=== PATIENT | male | born 1945 | race Caucasian/White ===

== ENCOUNTER → 2017-07-22 | Outpatient (CLI) | payer BC, MEDICARE | END | disposition home or self-care (01) | LOC: CFH 08:27 | PROVIDERS: ATTEND Internal Medicine Cardiovascular Disease | DX: I25.10 Atherosclerotic heart disease of native coronary artery without angina pectoris (principal); I25.2 Old myocardial infarction; Z95.1 Presence of aortocoronary bypass graft | CPT/HCPCS: 78452; 93017; A9502 ==

== ENCOUNTER 2018-04-18 11:29 | Inpatient (IN) | payer MEDICARE ==
[~2018-04-18] VITALS: Ht 185.4 cm; Wt 112.3 kg
[2018-04-18] MEDS ORDERED: ALLO300T PO (11:50)
[2018-04-18] MEDS ORDERED: ROSU5TAB PO (11:50)
[2018-04-18] MEDS ORDERED: PANT40TA5 PO (11:50)
[2018-04-18] MEDS ORDERED: ASPI-515 PO (11:50)
[2018-04-18 12:00] LABS: BASOPHILS # (AUTO) 0.15 x10^3/uL (0-0.1); BASOPHILS % (AUTO) 1 % (0-1); EOSINOPHILS # (AUTO) 0.02 x10^3/uL (0-0.4); EOSINOPHILS % (AUTO) 0 % (1-7); LYMPHOCYTES % (AUTO) 3 % (22-44); MD NO; MEAN CORPUSCULAR HEMOGLOBIN 29.2 pg (27.5-34.5); MEAN CORPUSCULAR HGB CONC 33.3 g/dL (33.2-36.2); MEAN CORPUSCULAR VOLUME 87.7 fL (81-97); MEAN PLATELET VOLUME 8.2 fL (7.4-10.4); MONOCYTES # (AUTO) 0.74 x10^3/uL (0.2-0.8); MONOCYTES % (AUTO) 5 % (2-9); NEUTROPHILS # (AUTO) 14.32 x10^3/uL (1.8-6.8); NEUTROPHILS % (AUTO) 92 % (42-75); PLATELET COUNT 178 x10^3/uL (130-400); RED BLOOD COUNT 5.77 x10^6/uL (4.38-5.82); RED CELL DISTRIBUTION WIDTH 13.5 % (9.4-14.8)
[2018-04-18 12:08] LABS: INTERNATIONAL NORMALIZED RATIO 0.99 (0.93-1.1); PROTHROMBIN TIME 10.2 Seconds (9.6-11.5)
[2018-04-18 12:14] LABS: ALANINE AMINOTRANSFERASE 35 U/L (12-78); ALBUMIN 4.2 g/dL (3.4-5.0); ANION GAP 6 mmol/L (5-15); CALCIUM 9.2 mg/dL (8.5-10.1); CHLORIDE 102 mmol/L (98-107); CREATININE 1.14 mg/dL (0.7-1.3)
[2018-04-18 12:16] LABS: TROPONIN I < 0.015 ng/mL (0.000-0.045)
[2018-04-18 12:18] LABS: ALKALINE PHOSPHATASE 79 U/L (45-117); BILIRUBIN,TOTAL 1.1 mg/dL (0.2-1.0); TOTAL PROTEIN 8.2 g/dL (6.4-8.2)
[2018-04-18] MEDS ORDERED: ASPIRIN 81 MG TABLET CHEW ONE (12:33)
[2018-04-18 12:36] LABS: MICROSCOPIC NOT IND
[2018-04-18] MEDS ORDERED: PLEASE ENTER ALLERGIES MC SCH (13:00)
[2018-04-18] MEDS ORDERED: HEPARIN 25,000 UNITS/500ML PMX 500 ML IV PRN ×2 (13:00→14:00)
[2018-04-18] MEDS ORDERED: HEPARIN 5,000 UNITS/ML, 1ML IV PRN ×2 (13:00→14:00)
[2018-04-18] MEDS ORDERED: HEPARIN 5,000 UNITS/ML, 1ML IV ONE ×2 (13:00→14:00)
[2018-04-18] MEDS ORDERED: ASPIRIN 81 MG TABLET CHEW PO ONE (13:00)
[2018-04-18 13:06] LABS: CULTURE INDICATED? NO
[2018-04-18] MEDS ORDERED: HEPARIN 5,000 UNITS/ML, 1ML ONE (13:25)
[2018-04-18] MEDS ORDERED: HEPARIN 25,000 UNITS/500ML PMX 500 ML ONE (13:26)
[2018-04-18] MEDS ORDERED: morphine SULFATE 10 MG/ML, 1ML IV PRN (14:00)
[2018-04-18] MEDS ORDERED: ZOLPIDEM 5MG TABLET PO PRN (14:00)
[2018-04-18] MEDS ORDERED: ONDANSETRON 2MG/ML, 2ML IVP PRN (14:00)
[2018-04-18] MEDS ORDERED: NITROGLYCERIN 0.4 MG/SPRAY SL PRN (14:00)
[2018-04-18] MEDS ORDERED: BISACODYL 10 MG SUPP PR PRN (14:00)
[2018-04-18] MEDS ORDERED: NITROGLYCERIN 0.4 MG BOTTLE (25 TABS) SL PRN (14:00)
[2018-04-18] MEDS: PANTOPROZOLE 40MG TABLET PO SCH (17:49)
[2018-04-18 18:18] LABS: TROPONIN I < 0.015 ng/mL (0.000-0.045)
[2018-04-18 19:23] VITALS: BP 130/79
[2018-04-18] MEDS ORDERED: PANTOPRAZOLE 20MG TABLET PO ONE (21:00)
[2018-04-18] MEDS: SODIUM CHLORIDE FLUSH 10ML SYR IVF SCH (21:01)
[2018-04-18] MEDS: ATORVASTATIN 10 MG TABLET PO SCH (21:02)
[2018-04-18] MEDS: ATORVASTATIN 80 MG TABLET PO SCH (21:02)
[2018-04-18] MEDS: MAALOX/HYOSCYAMINE/LIDOCAINE 45 ML BTL PO PRN (21:12)
[2018-04-19 00:21] LABS: TROPONIN I < 0.015 ng/mL (0.000-0.045)
[2018-04-19 00:55] VITALS: BP 111/70
[2018-04-19] MEDS: MAALOX/HYOSCYAMINE/LIDOCAINE 45 ML BTL PO PRN (04:29)
[2018-04-19 05:15] LABS: MEAN CORPUSCULAR HEMOGLOBIN 29.8 pg (27.5-34.5); MEAN CORPUSCULAR HGB CONC 33.7 g/dL (33.2-36.2); MEAN CORPUSCULAR VOLUME 88.2 fL (81-97); MEAN PLATELET VOLUME 8.9 fL (7.4-10.4); PLATELET COUNT 161 x10^3/uL (130-400); RED BLOOD COUNT 5.65 x10^6/uL (4.38-5.82); RED CELL DISTRIBUTION WIDTH 13.5 % (9.4-14.8)
[2018-04-19 05:35] LABS: ALANINE AMINOTRANSFERASE 49 U/L (12-78); ALBUMIN 3.7 g/dL (3.4-5.0); ALKALINE PHOSPHATASE 76 U/L (45-117); BILIRUBIN,TOTAL 2.7 mg/dL (0.2-1.0); CALCIUM 8.8 mg/dL (8.5-10.1); CREATININE 1.18 mg/dL (0.7-1.3); TOTAL PROTEIN 7.9 g/dL (6.4-8.2)
[2018-04-19 05:39] LABS: ANION GAP 6 mmol/L (5-15); CHLORIDE 100 mmol/L (98-107)
[2018-04-19] MEDS ORDERED: ASPIRIN 325 MG TABLET EC PO SCH (06:00)
[2018-04-19 07:10] VITALS: BP 113/74
[2018-04-19] MEDS ORDERED: ALLOPURINOL 300 MG TABLET PO SCH (09:00)
[2018-04-19] MEDS: PANTOPROZOLE 40MG TABLET PO SCH ×2 (09:13→17:22)
[2018-04-19] MEDS: METOPROLOL TARTRATE 25 MG TABLET PO SCH ×2 (10:18→18:06)
[2018-04-19] MEDS: ALLOPURINOL 300 MG TABLET PO SCH (10:18)
[2018-04-19] MEDS: ASPIRIN 81 MG TABLET EC PO SCH (10:18)
[2018-04-19 11:04] LABS: CHOL/HDL RATIO 1.8; LDL/HDL RATIO 0.4 (0.5-3.0)
[2018-04-19] MEDS: SODIUM CHLORIDE FLUSH 10ML SYR IVF SCH ×2 (12:28→21:49)
[2018-04-19 12:29] VITALS: BP 121/81
[2018-04-19] MEDS: SUCRALFATE 1 GM/10 ML UDC PO SCH ×2 (16:15→21:48)
[2018-04-19] MEDS: ACETAMINOPHEN 325 MG TABLET PO PRN (18:06)
[2018-04-19 19:07] VITALS: BP 99/56
[2018-04-19] MEDS: ATORVASTATIN 80 MG TABLET PO SCH (21:49)
[2018-04-19] MEDS: ATORVASTATIN 10 MG TABLET PO SCH (21:49)
[2018-04-20 02:11] VITALS: BP 107/71
[2018-04-20 05:35] LABS: BASOPHILS # (AUTO) 0.04 x10^3/uL (0-0.1); BASOPHILS % (AUTO) 0 % (0-1); EOSINOPHILS # (AUTO) 0.03 x10^3/uL (0-0.4); EOSINOPHILS % (AUTO) 0 % (1-7); LYMPHOCYTES # (AUTO) 0.82 x10^3/uL (1-3.4); LYMPHOCYTES % (AUTO) 7 % (22-44); MD NO; MEAN CORPUSCULAR HEMOGLOBIN 30.1 pg (27.5-34.5); MEAN CORPUSCULAR HGB CONC 34.1 g/dL (33.2-36.2); MEAN CORPUSCULAR VOLUME 88.4 fL (81-97); MEAN PLATELET VOLUME 8.7 fL (7.4-10.4); MONOCYTES # (AUTO) 0.79 x10^3/uL (0.2-0.8); MONOCYTES % (AUTO) 7 % (2-9); NEUTROPHILS # (AUTO) 9.52 x10^3/uL (1.8-6.8); NEUTROPHILS % (AUTO) 85 % (42-75); PLATELET COUNT 148 x10^3/uL (130-400); RED BLOOD COUNT 5.12 x10^6/uL (4.38-5.82); RED CELL DISTRIBUTION WIDTH 13.8 % (9.4-14.8)
[2018-04-20 05:42] LABS: ALANINE AMINOTRANSFERASE 88 U/L (12-78); ALBUMIN 3.1 g/dL (3.4-5.0); ANION GAP 6 mmol/L (5-15); CALCIUM 8.8 mg/dL (8.5-10.1); CHLORIDE 101 mmol/L (98-107); CREATININE 0.99 mg/dL (0.7-1.3)
[2018-04-20 05:44] LABS: ALKALINE PHOSPHATASE 93 U/L (45-117); BILIRUBIN,TOTAL 2.2 mg/dL (0.2-1.0); TOTAL PROTEIN 7.1 g/dL (6.4-8.2)
[2018-04-20 06:03] VITALS: BP 114/67
[2018-04-20] MEDS: ASPIRIN 81 MG TABLET EC PO SCH (06:04)
[2018-04-20] MEDS: METOPROLOL TARTRATE 25 MG TABLET PO SCH ×2 (06:05→17:06)
[2018-04-20] MEDS: SUCRALFATE 1 GM/10 ML UDC PO SCH ×4 (07:17→20:00)
[2018-04-20] MEDS: SODIUM CHLORIDE FLUSH 10ML SYR IVF SCH ×2 (11:00→20:00)
[2018-04-20 12:05] VITALS: BP 121/82
[2018-04-20] MEDS: PANTOPROZOLE 40MG TABLET PO SCH ×2 (12:21→17:07)
[2018-04-20] MEDS: ALLOPURINOL 300 MG TABLET PO SCH (17:07)
[2018-04-20 17:38] VITALS: BP 107/57
[2018-04-20 18:42] VITALS: BP 115/76
[2018-04-20] MEDS: ATORVASTATIN 80 MG TABLET PO SCH (20:00)
[2018-04-20] MEDS: ATORVASTATIN 10 MG TABLET PO SCH (20:00)
[2018-04-21 03:53] VITALS: BP 146/82
[2018-04-21 05:30] VITALS: BP 116/69
[2018-04-21 05:48] LABS: BASOPHILS # (AUTO) 0.03 x10^3/uL (0-0.1); BASOPHILS % (AUTO) 0 % (0-1); EOSINOPHILS # (AUTO) 0.07 x10^3/uL (0-0.4); EOSINOPHILS % (AUTO) 1 % (1-7); LYMPHOCYTES # (AUTO) 0.94 x10^3/uL (1-3.4); LYMPHOCYTES % (AUTO) 10 % (22-44); MD NO; MEAN CORPUSCULAR HEMOGLOBIN 29.8 pg (27.5-34.5); MEAN CORPUSCULAR HGB CONC 33.7 g/dL (33.2-36.2); MEAN CORPUSCULAR VOLUME 88.3 fL (81-97); MEAN PLATELET VOLUME 8.7 fL (7.4-10.4); MONOCYTES # (AUTO) 0.88 x10^3/uL (0.2-0.8); MONOCYTES % (AUTO) 9 % (2-9); NEUTROPHILS # (AUTO) 7.59 x10^3/uL (1.8-6.8); NEUTROPHILS % (AUTO) 80 % (42-75); PLATELET COUNT 150 x10^3/uL (130-400); RED BLOOD COUNT 5.08 x10^6/uL (4.38-5.82); RED CELL DISTRIBUTION WIDTH 13.2 % (9.4-14.8)
[2018-04-21] MEDS: METOPROLOL TARTRATE 25 MG TABLET PO SCH ×2 (05:48→17:26)
[2018-04-21] MEDS: ASPIRIN 81 MG TABLET EC PO SCH (05:48)
[2018-04-21] MEDS: SUCRALFATE 1 GM/10 ML UDC PO SCH ×4 (05:48→21:01)
[2018-04-21 05:57] LABS: ALBUMIN 2.9 g/dL (3.4-5.0); ANION GAP 6 mmol/L (5-15); CALCIUM 8.8 mg/dL (8.5-10.1); CHLORIDE 100 mmol/L (98-107)
[2018-04-21 06:00] LABS: ALANINE AMINOTRANSFERASE 59 U/L (12-78); ALKALINE PHOSPHATASE 92 U/L (45-117); BILIRUBIN,TOTAL 2.2 mg/dL (0.2-1.0); CREATININE 0.92 mg/dL (0.7-1.3); TOTAL PROTEIN 7.3 g/dL (6.4-8.2)
[2018-04-21 07:07] VITALS: BP 121/75
[2018-04-21] MEDS: ALLOPURINOL 300 MG TABLET PO SCH (08:29)
[2018-04-21] MEDS: PANTOPROZOLE 40MG TABLET PO SCH ×2 (08:29→17:26)
[2018-04-21] MEDS: SODIUM CHLORIDE FLUSH 10ML SYR IVF SCH ×2 (08:29→21:01)
[2018-04-21] MEDS ORDERED: PROPOFOL 10 MG/ML, 20ML ONE (10:39)
[2018-04-21] MEDS ORDERED: GLYCOPYRROLATE 0.2MG/1ML, 5ML ONE (10:39)
[2018-04-21] MEDS ORDERED: SUCCINYLCHOLINE 20 MG/ML, 10ML ONE (10:39)
[2018-04-21] MEDS ORDERED: ONDANSETRON 2MG/ML, 2ML ONE (10:39)
[2018-04-21] MEDS ORDERED: NEOSTIGMINE 1 MG/ML, 10ML ONE (10:39)
[2018-04-21] MEDS ORDERED: CEFAZOLIN 1,000 MG ONE (10:39)
[2018-04-21] MEDS ORDERED: ROCURONIUM 10 MG/ML,10ML ONE (10:39)
[2018-04-21 13:08] VITALS: BP 116/83
[2018-04-21] MEDS ORDERED: BUPIVACAINE/PF 0.5% ONE (17:25)
[2018-04-21] MEDS ORDERED: EPINEPHRINE 1 MG/ML, 1ML ONE (17:26)
[2018-04-21] MEDS ORDERED: FENTANYL PF 250 MCG/5ML ONE (18:04)
[2018-04-21] MEDS ORDERED: FENTANYL PF 100 MCG/2ML IV PRN (18:30)
[2018-04-21] MEDS ORDERED: ACETAMINOPHEN 325 MG TABLET PO PRN (18:30)
[2018-04-21] MEDS ORDERED: KETOROLAC 30 MG/1 ML IV PRN (18:30)
[2018-04-21] MEDS ORDERED: LABETALOL 5MG/ML, 20ML IV PRN (18:30)
[2018-04-21] MEDS ORDERED: hydrALAzine 20 MG/ML, 1ML IV PRN (18:30)
[2018-04-21] MEDS ORDERED: ALBUTEROL SULFATE 2.5 MG/3 ML NPPB PRN (18:30)
[2018-04-21] MEDS ORDERED: LORazepam 2 MG/ML, 1ML IVPush PRN (18:30)
[2018-04-21] MEDS ORDERED: OXYcodone 5 MG/5 ML ORAL.SOL UDC PO PRN (18:30)
[2018-04-21] MEDS ORDERED: MEPERIDINE/PF 25MG/0.5ML IVPush PRN (18:30)
[2018-04-21] MEDS ORDERED: PROMETHAZINE 25 MG/ML, 1ML IV PRN (18:30)
[2018-04-21] MEDS ORDERED: HYDROmorphone 1 MG/ML, 1ML IV PRN (18:30)
[2018-04-21] MEDS ORDERED: ACETAMINOPHEN 650 MG/20.3 ML UDC ONE (19:41)
[2018-04-21] MEDS ORDERED: OXYcodone 5 MG/5 ML ORAL.SOL UDC ONE (19:42)
[2018-04-21 20:28] VITALS: BP 147/89
[2018-04-21] MEDS ORDERED: MORPHINE SULFATE 4 MG/ML, 1ML IV PRN (21:00)
[2018-04-21] MEDS: ATORVASTATIN 80 MG TABLET PO SCH (21:00)
[2018-04-21] MEDS ORDERED: LACTATED RINGERS 1,000 ML IV SCH (21:00)
[2018-04-21] MEDS: ATORVASTATIN 10 MG TABLET PO SCH (21:01)
[2018-04-21 23:30] VITALS: BP 131/85
[2018-04-22] MEDS: OXYcodone/APAP 5/325MG TABLET PO PRN ×2 (01:31→05:37)
[2018-04-22 03:11] VITALS: BP 184/88
[2018-04-22 03:43] VITALS: BP 128/91
[2018-04-22] MEDS: METOPROLOL TARTRATE 25 MG TABLET PO SCH (05:37)
[2018-04-22] MEDS: ASPIRIN 81 MG TABLET EC PO SCH (05:37)
[2018-04-22 05:49] LABS: CHLORIDE 103 mmol/L (98-107)
[2018-04-22 05:56] LABS: ALANINE AMINOTRANSFERASE 88 U/L (12-78); ALBUMIN 2.7 g/dL (3.4-5.0); ALKALINE PHOSPHATASE 180 U/L (45-117); ANION GAP 6 mmol/L (5-15); BILIRUBIN,TOTAL 1.2 mg/dL (0.2-1.0); CALCIUM 8.8 mg/dL (8.5-10.1); CREATININE 1.09 mg/dL (0.7-1.3); TOTAL PROTEIN 7.2 g/dL (6.4-8.2)
[2018-04-22 07:46] VITALS: BP 142/85
[2018-04-22] MEDS: PANTOPROZOLE 40MG TABLET PO SCH (07:48)
[2018-04-22] MEDS: ALLOPURINOL 300 MG TABLET PO SCH (07:48)
[2018-04-22] MEDS: SUCRALFATE 1 GM/10 ML UDC PO SCH ×2 (07:48→11:50)
[2018-04-22] MEDS: SODIUM CHLORIDE FLUSH 10ML SYR IVF SCH (07:49)
[2018-04-22] MEDS: ACETAMINOPHEN 325 MG TABLET PO PRN (12:00)
[2018-04-22] MEDS ORDERED: METO25TA35 PO (12:27)
[2018-04-22] MEDS ORDERED: OXYC-302 PO (13:50)
[2018-04-22] MEDS ORDERED: POLY17PO5 PO (13:51)
== END 2018-04-22 14:45 | disposition home or self-care (01) | DRG 853 ==
LOC: ED 11:39 → EDIP 12:42 → 5SO 16:51 → DCLOUNGE 04-22 14:25
PROVIDERS: ADMIT Internal Medicine; ATTEND Internal Medicine
PROC: 0FT44ZZ Resection of Gallbladder, Percutaneous Endoscopic Approach (ICD-10-PCS; principal; 2018-04-21 18:00)
DX: A41.9 Sepsis, unspecified organism (principal); J96.01 Acute respiratory failure with hypoxia; K81.0 Acute cholecystitis; F10.10 Alcohol abuse, uncomplicated; I44.7 Left bundle-branch block, unspecified; I25.10 Atherosclerotic heart disease of native coronary artery without angina pectoris; K21.9 Gastro-esophageal reflux disease without esophagitis; E78.5 Hyperlipidemia, unspecified; E86.0 Dehydration; K22.70 Barrett's esophagus without dysplasia; M10.9 Gout, unspecified; D72.829 Elevated white blood cell count, unspecified; D64.9 Anemia, unspecified; Z95.1 Presence of aortocoronary bypass graft; Z87.891 Personal history of nicotine dependence; Z82.49 Family history of ischemic heart disease and other diseases of the circulatory system; Z79.82 Long term (current) use of aspirin; Z86.12 Personal history of poliomyelitis; Z90.49 Acquired absence of other specified parts of digestive tract; Z80.9 Family history of malignant neoplasm, unspecified
CPT/HCPCS: 0399T; 36415; 74022; 74181; 76700; 80053; 80061; 81003; 83605; 83690; 83880; 84484; 85025; 85027; 85520; 85610; 88304; 93005; 93306; 96374; 96375; C1729; J0171; J0690; J1644; J2405; J2704; J2710; J3010; J3490; J0330; J7120

== ENCOUNTER → 2019-03-09 | Outpatient (CLI) | payer MEDICARE ==
[~2019-03-09] MED LIST: ALLO300T PO; ASPI-515 PO; METO25TA35 PO; OXYC-302 PO; PANT40TA5 PO; POLY17PO5 PO; ROSU5TAB PO
== END | disposition home or self-care (01) ==
LOC: CFH 08:09
PROVIDERS: ATTEND Internal Medicine Cardiovascular Disease
DX: R07.89 Other chest pain (principal); I25.10 Atherosclerotic heart disease of native coronary artery without angina pectoris; I44.0 Atrioventricular block, first degree; I45.10 Unspecified right bundle-branch block; Z95.1 Presence of aortocoronary bypass graft
CPT/HCPCS: 78452; 93017; A9502

== ENCOUNTER → 2020-10-11 | Outpatient (CLI) | payer MEDICARE ==
[~2020-10-11] MED LIST changes: -PANT40TA5 PO; +PANT40TA6 PO; +REGADENOSON 0.4 MG/5 ML SYRINGE ONE
== END | disposition home or self-care (01) ==
LOC: CFH 08:15
PROVIDERS: ATTEND Internal Medicine Cardiovascular Disease
DX: I25.10 Atherosclerotic heart disease of native coronary artery without angina pectoris (principal); Z95.1 Presence of aortocoronary bypass graft
CPT/HCPCS: 78452; 93017; A9502; J2785